=== PATIENT | female | born 1970 | race Caucasian/White ===

== ENCOUNTER → 2017-03-30 | Outpatient (CLI) | payer BC ==
--- NOTE | 2017-03-30 20:06 | DIAGNOSTIC IMAGING REPORT ---
CHEST 2 VIEWS ROUTINE CLINICAL HISTORY: COUGH dyspnea COMPARISON STUDY: No previous studies for comparison. FINDINGS: The bones soft tissues and hemidiaphragms are normal. The cardiomediastinal silhouette is normal. The lungs are clear. The pulmonary vasculature is normal. Pectus deformity of the chest IMPRESSION: Negative chest. The above report was generated using voice recognition software. It may contain grammatical, syntax or spelling errors. Electronically signed by: Lam Huston M.D. 03/30/2017 8:05 PM Dictated Date/Time: 03/30/2017 8:04 PM
== END | disposition home or self-care (01) ==
LOC: C.RAD 19:47
PROVIDERS: ATTEND Physician Assistant Surgical
DX: R05 Cough (principal)